=== PATIENT | female | born 1960 | race Caucasian/White ===

== ENCOUNTER 2020-03-21 13:33 | Emergency (ER) | payer OTHER ==
[~2020-03-21] VITALS: Ht 170.2 cm; Wt 77.7 kg
[2020-03-21] MEDS ORDERED: CONTRAST GIVEN. MC PRN (14:00)
[2020-03-21] MEDS ORDERED: IOHEXOL 350 MG/ML 100 ML VIAL. IV ONE (14:00)
[2020-03-21] MEDS ORDERED: HYDROcodone/APAP 5/325MG 1 TAB TABLET PO ONE (14:00)
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
[2020-03-21 14:18] LABS: BASO # 0.1 x10^3/uL (0.0-0.2); BASO % 1 % (0-3); EOS # 0.2 x10^3/uL (0.0-0.7); EOS % 2 % (0-3); HEMATOCRIT 42.6 % (36.0-47.0); HEMOGLOBIN 14.4 g/dL (12.0-15.5); LYMPH # 3.7 x10^3/uL (1.0-4.8); LYMPH % 45 % (24-48); MEAN CORPUSCULAR HEMOGLOBIN 31 pg (25-35); MEAN CORPUSCULAR HGB CONC 34 g/dL (31-37); MEAN CORPUSCULAR VOLUME 92 fL (79-100); MONO # 0.6 x10^3/uL (0.0-1.1); MONO % 8 % (0-9); NEUT # 3.7 x10^3uL (1.8-7.7); NEUT % 45 % (31-73); PLATELET COUNT 421 x10^3/uL (140-400); RED BLOOD COUNT 4.63 x10^6/uL (3.50-5.40); RED CELL DISTRIBUTION WIDTH 13.9 % (11.5-14.5); WHITE BLOOD COUNT 8.3 x10^3/uL (4.0-11.0)
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
[2020-03-21 14:26] LABS: CALCIUM 9.8 mg/dL (8.5-10.1); GFR 57.1; POTASSIUM 3.1 mmol/L (3.5-5.1)
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
[2020-03-21 15:27] VITALS: BP 142/86
[2020-03-21] MEDS ORDERED: IBUPROFEN 600 MG TABLET. PO ONE (15:45)
== END 2020-03-21 15:40 | disposition home or self-care (01) ==
LOC: ER 13:33
DX: S40.212A Abrasion of left shoulder, initial encounter (principal); M54.2 Cervicalgia; I10 Essential (primary) hypertension; E03.9 Hypothyroidism, unspecified; Z88.2 Allergy status to sulfonamides; V89.2XXA Person injured in unspecified motor-vehicle accident, traffic, initial encounter; Y93.I9 Activity, other involving external motion; Y92.488 Other paved roadways as the place of occurrence of the external cause; Y99.8 Other external cause status
CPT/HCPCS: 36415; 70450; 71275; 72125; 72128; 72131; 74174; 80048; 81025; 84702; 85025; 99285; Q9967

== ENCOUNTER → 2020-04-05 | Outpatient (CLI) | payer OTHER ==
[2020-03-21 15:27] VITALS: BP 142/86
--- NOTE | 2020-04-05 15:22 | RAD ---
Three-view left shoulder and two-view left clavicle dated 04/05/2020. No comparison available. Clinical data indication: Pain. FINDINGS: 2 views left clavicle show normal bony alignment. No displaced fracture. No periostitis or bone destruction. Mild hypertrophic change of the AC joint. 3 views of left shoulder show normal bony alignment. No displaced fracture. No acute osseous or articular abnormality. IMPRESSION: No acute findings. Electronically signed by: Lee Morgan MD (04/05/2020 3:19 PM) [facility]IT[facility]
== END ==
LOC: DXRAD 14:19
PROVIDERS: ATTEND Family Medicine
DX: M25.512 Pain in left shoulder (principal)
CPT/HCPCS: 73000; 73030